=== PATIENT | female | born 1930 | race Caucasian/White ===

== ENCOUNTER → 2018-04-12 | Outpatient (CLI) | payer MEDICARE, BC ==
--- NOTE | 2018-04-13 07:26 | CT ---
EXAMINATION TYPE: CT foot LT wo con DATE OF EXAM: 04/12/2018 COMPARISON: None HISTORY: Lt foot pain CT DLP: 205 mGycm Automated exposure control for dose reduction was used. FINDINGS: Images are reviewed in the axial plane. Reconstructed images in the coronal plane are reviewed. There is a punctate density at the base of the second digit distal metatarsal region. Radiopaque fore ign body may be present at this location. This appears somewhat deep along the plantar aspect of the sesamoid should be considered within the differential. Plain film correlation could be performed. Rad iopaque density is within the base of the proximal phalanx first digit. Three-D reconstructed images performed separately on the ventricular computer by the technologist are reviewed. No displaced fractures are identified. IMPRESSION: 1. THERE MAY BE A RADIOPAQUE FOREIGN BODY WITHIN THE SOFT TISSUES OF THE PLANTAR ASPECT OF THE FOOT A DJACENT TO THE DISTAL SECOND METATARSAL. PLAIN FILM CORRELATION IS RECOMMENDED.
== END | disposition home or self-care (01) ==
LOC: RADCTMAIN 08:49
PROVIDERS: ATTEND Orthopaedic Surgery
DX: M79.672 Pain in left foot (principal); L92.3 Foreign body granuloma of the skin and subcutaneous tissue